=== PATIENT | male | born 1985 | race Caucasian/White ===

== ENCOUNTER 2017-10-09 18:02 | Emergency (ER) | payer BC ==
[~2017-10-09] VITALS: Ht 190.5 cm; Wt 136.4 kg
[2017-10-09 18:15] VITALS: TEMP 97.6
[2017-10-09 18:54] LABS: BASO # 0.1 (0.0-0.2); BASO % 0.5 % (0.0-2.0); EOS # 0.1 (0.0-0.7); EOS % 0.6 % (0-4.0); GRAN # 8.9 (1.4-6.5); HEMATOCRIT 45.1 % (42.0-52.0); HEMOGLOBIN 15.9 g/dl (13.5-18.0); LYMPH # 2.4 (1.2-3.4); LYMPH % 19.6 % (20.0-51.0); MEAN CELL VOLUME 92 fl (80.0-100.0); MEAN CORPUSCULAR HEMOGLOBIN 32 pg (27.0-31.0); MEAN CORPUSCULAR HGB CONC 35 g/dl (33.0-37.0); MEAN PLATELET VOLUME 10.1 fl (7.4-10.4); MONO # 0.7 (0.1-0.6); PLATELET COUNT 293 K/mm3 (130-400); RED BLOOD COUNT 4.91 M/mm3 (4.20-5.60)
[2017-10-09 19:06] LABS: ALANINE AMINOTRANSFERASE 39 U/L (21-72); ALBUMIN 4.7 gm/dL (3.5-5.0); ALKALINE PHOSPHATASE 87 U/L (50-136); ANION GAP 16 mmol/L (7-16); AST,SGOT 23 U/L (15-37); BILIRUBIN,TOTAL 0.7 mg/dL (0.0-1.0); BLOOD UREA NITROGEN 15 mg/dL (9-20); CARBON DIOXIDE 21 mmol/L (22-30); CHLORIDE 101 mmol/L (98-107); CREATININE, serum 1.17 mg/dL (0.66-1.25); GLUCOSE 100 mg/dL (74-106); LIPASE 58 U/L (23-300); POTASSIUM 4.2 mmol/L (3.4-5.0); SODIUM 139 mmol/L (137-145); TOTAL PROTEIN 8.7 gm/dL (6.4-8.2)
[2017-10-09 19:17] LABS: TROPONIN-I < 0.012 ng/mL (0.000-0.034)
[2017-10-09 19:23] LABS: COLLECTION METHOD CLEAN CATCH
[2017-10-09 19:29] LABS: MUCOUS Present /lpf; PH 5 (5-8); SQUAMOUS EPITHELIAL 0-2 /hpf; URINE APPEARANCE Clear; URINE BACTERIA None Seen /hpf; URINE BILIRUBIN Negative (NEGATIVE); URINE BLOOD Negative (NEGATIVE); URINE COLOR Yellow; URINE GLUCOSE Negative (NEGATIVE); URINE KETONE Negative (NEGATIVE); URINE LEUKOCYTE ESTERASE Negative (NEGATIVE); URINE NITRATE Negative (NEGATIVE); URINE PROTEIN(semi-quant) Negative (NEGATIVE); URINE RBC 0-2 /hpf; URINE UROBILINOGEN Negative (NEGATIVE)
[2017-10-09] MEDS ORDERED: PHENERGAN 25 TA25 MG PO (19:37)
[2017-10-09] MEDS ORDERED: NEXIUM 40MG40 MG PO (19:37)
[2017-10-09 20:05] VITALS: BP 158/112; PULSE 87
== END 2017-10-09 20:04 | disposition home or self-care (01) ==
LOC: COL.ER 18:02
PROVIDERS: Emergency Medicine
DX: R10.12 Left upper quadrant pain (principal); F17.210 Nicotine dependence, cigarettes, uncomplicated
CPT/HCPCS: C9113; J2550; J7030

== ENCOUNTER 2017-12-25 16:18 | Inpatient (IN) | payer BC ==
[~2017-12-25] VITALS: Ht 190.5 cm; Wt 131.2 kg
[~2017-12-25 16:18] MED LIST changes: -PRILOSEC 20MG20 MG PO; -TYLENOL 500MG500 MG PO
[2017-12-25] MEDS ORDERED: PRILOSEC 20MG20 MG PO (16:42)
[2017-12-25] MEDS ORDERED: TYLENOL 500MG500 MG PO (16:44)
[2017-12-25 17:01] VITALS: BP 148/81; PULSE 112; TEMP 98.3
[2017-12-25 17:35] LABS: HEMATOCRIT 39.2 % (42.0-52.0); HEMOGLOBIN 13.4 g/dl (13.5-18.0); MEAN CELL VOLUME 96 fl (80.0-100.0); MEAN CORPUSCULAR HEMOGLOBIN 33 pg (27.0-31.0); MEAN CORPUSCULAR HGB CONC 34 g/dl (33.0-37.0); PLATELET COUNT 361 K/mm3 (130-400); RED BLOOD COUNT 4.09 M/mm3 (4.20-5.60); REDCELL DISTRIBUTION WIDTH-CV 13.2 % (11.5-14.5)
[2017-12-25 17:52] LABS: ALBUMIN 3.8 gm/dL (3.5-5.0); BILIRUBIN,TOTAL 1.3 mg/dL (0.0-1.0); CALCIUM 8.6 mg/dL (8.4-10.2); CREATININE, serum 0.94 mg/dL (0.66-1.25); POTASSIUM 3.6 mmol/L (3.4-5.0); TOTAL PROTEIN 7.6 gm/dL (6.4-8.2)
[2017-12-25 17:53] LABS: BAND 12 % (0-10); LYMPHOCYTE 4 % (20.0-51.0); METAMYELOCYTE 1 % (0-0); NEUTROPHILS 76 % (42.0-75.2); PLATELET ESTIMATE NORMAL (NORMAL)
[2017-12-25 19:38] VITALS: BP 149/74; PULSE 108; TEMP 98.5
[2017-12-26 00:19] VITALS: BP 153/77; PULSE 114; TEMP 98.6
[2017-12-26 04:56] VITALS: BP 150/84; PULSE 105; TEMP 98.6
[2017-12-26 05:49] LABS: COLLECTION METHOD CLEAN CATCH
[2017-12-26 06:21] LABS: PH 6 (5-8); SQUAMOUS EPITHELIAL None Seen /hpf; URINE APPEARANCE Turbid; URINE BACTERIA None Seen /hpf; URINE BILIRUBIN Negative (NEGATIVE); URINE BLOOD 3+ (NEGATIVE); URINE COLOR Red; URINE GLUCOSE Negative (NEGATIVE); URINE KETONE Trace (NEGATIVE); URINE LEUKOCYTE ESTERASE Negative (NEGATIVE); URINE NITRATE Negative (NEGATIVE); URINE PROTEIN(semi-quant) 1+ (NEGATIVE); URINE RBC 20-50 /hpf; URINE UROBILINOGEN Negative (NEGATIVE)
[2017-12-26 07:08] LABS: HEMOGLOBIN 11.9 g/dl (13.5-18.0); MEAN CELL VOLUME 98 fl (80.0-100.0); MEAN CORPUSCULAR HEMOGLOBIN 33 pg (27.0-31.0); MEAN CORPUSCULAR HGB CONC 34 g/dl (33.0-37.0); MEAN PLATELET VOLUME 10.1 fl (7.4-10.4); PLATELET COUNT 345 K/mm3 (130-400); RED BLOOD COUNT 3.62 M/mm3 (4.20-5.60); REDCELL DISTRIBUTION WIDTH-CV 13.5 % (11.5-14.5)
[2017-12-26 07:14] LABS: HEMATOCRIT 35.3 % (42.0-52.0)
[2017-12-26 07:17] LABS: ALBUMIN 3.1 gm/dL (3.5-5.0); CALCIUM 7.9 mg/dL (8.4-10.2); CREATININE, serum 0.81 mg/dL (0.66-1.25); POTASSIUM 3.7 mmol/L (3.4-5.0); TOTAL PROTEIN 6.5 gm/dL (6.4-8.2)
[2017-12-26 07:38] VITALS: BP 128/70; PULSE 102; TEMP 98.6
[2017-12-26 10:10] LABS: BAND 22 % (0-10); LYMPHOCYTE 1 % (20.0-51.0); NEUTROPHILS 74 % (42.0-75.2); PLATELET ESTIMATE NORMAL (NORMAL); TOXIC GRANULATION PRESENT
[2017-12-26 12:07] VITALS: BP 143/81; PULSE 98; TEMP 98.7
[2017-12-26 16:21] VITALS: BP 147/77; PULSE 88; TEMP 98.5
[2017-12-26 19:42] VITALS: BP 151/77; PULSE 103; TEMP 99.2
[2017-12-27] VITALS (7 sets, daily range): BP systolic 147–158; BP diastolic 61–85; PULSE 77–106; TEMP 97.9–101.2
[2017-12-27 06:18] LABS: HEMOGLOBIN 11.3 g/dl (13.5-18.0); MEAN CELL VOLUME 98 fl (80.0-100.0); MEAN CORPUSCULAR HEMOGLOBIN 33 pg (27.0-31.0); MEAN CORPUSCULAR HGB CONC 34 g/dl (33.0-37.0); MEAN PLATELET VOLUME 9.7 fl (7.4-10.4); PLATELET COUNT 347 K/mm3 (130-400); RED BLOOD COUNT 3.44 M/mm3 (4.20-5.60); REDCELL DISTRIBUTION WIDTH-CV 13.2 % (11.5-14.5)
[2017-12-27 06:20] LABS: HEMATOCRIT 33.6 % (42.0-52.0)
[2017-12-27 06:44] LABS: ALBUMIN 2.9 gm/dL (3.5-5.0); BILIRUBIN,TOTAL 0.9 mg/dL (0.0-1.0); CREATININE, serum 0.74 mg/dL (0.66-1.25); POTASSIUM 3.6 mmol/L (3.4-5.0); TOTAL PROTEIN 6.3 gm/dL (6.4-8.2)
[2017-12-27 07:20] LABS: BAND 26 % (0-10); LYMPHOCYTE 9 % (20.0-51.0); NEUTROPHILS 60 % (42.0-75.2); PLATELET ESTIMATE NORMAL (NORMAL)
[2017-12-27 09:56] LABS: CHOLESTEROL RISK RATIO 5.7
[2017-12-28] VITALS (9 sets, daily range): BP systolic 148–155; BP diastolic 63–90; PULSE 95–107; TEMP 98–101.2
[2017-12-28 07:40] LABS: HEMOGLOBIN 10.5 g/dl (13.5-18.0); MEAN CELL VOLUME 99 fl (80.0-100.0); MEAN CORPUSCULAR HEMOGLOBIN 33 pg (27.0-31.0); MEAN CORPUSCULAR HGB CONC 33 g/dl (33.0-37.0); MEAN PLATELET VOLUME 10.1 fl (7.4-10.4); PLATELET COUNT 383 K/mm3 (130-400); RED BLOOD COUNT 3.19 M/mm3 (4.20-5.60); REDCELL DISTRIBUTION WIDTH-CV 13.2 % (11.5-14.5)
[2017-12-28 07:48] LABS: HEMATOCRIT 31.6 % (42.0-52.0)
[2017-12-28 07:53] LABS: ALBUMIN 2.7 gm/dL (3.5-5.0); BILIRUBIN,TOTAL 0.7 mg/dL (0.0-1.0); CALCIUM 7.9 mg/dL (8.4-10.2); CREATININE, serum 0.7 mg/dL (0.66-1.25); POTASSIUM 3.4 mmol/L (3.4-5.0)
[2017-12-28 08:10] LABS: BAND 30 % (0-10); EOSINOPHIL 1 % (0-4); LYMPHOCYTE 5 % (20.0-51.0); METAMYELOCYTE 1 % (0-0); NEUTROPHILS 59 % (42.0-75.2)
[2017-12-28 08:11] LABS: PLATELET ESTIMATE NORMAL (NORMAL)
[2017-12-29 03:41] VITALS: BP 146/84; PULSE 102; TEMP 98.7
[2017-12-29 07:05] LABS: HEMATOCRIT 33.4 % (42.0-52.0); HEMOGLOBIN 11.2 g/dl (13.5-18.0); MEAN CELL VOLUME 98 fl (80.0-100.0); MEAN CORPUSCULAR HEMOGLOBIN 33 pg (27.0-31.0); MEAN CORPUSCULAR HGB CONC 34 g/dl (33.0-37.0); MEAN PLATELET VOLUME 9.6 fl (7.4-10.4); PLATELET COUNT 418 K/mm3 (130-400); RED BLOOD COUNT 3.41 M/mm3 (4.20-5.60)
[2017-12-29 07:18] LABS: ALBUMIN 2.8 gm/dL (3.5-5.0); BILIRUBIN,TOTAL 2.8 mg/dL (0.0-1.0); CALCIUM 8.1 mg/dL (8.4-10.2); CREATININE, serum 0.65 mg/dL (0.66-1.25); POTASSIUM 3.9 mmol/L (3.4-5.0); TOTAL PROTEIN 6.1 gm/dL (6.4-8.2)
[2017-12-29 07:21] LABS: BAND 27 % (0-10); LYMPHOCYTE 9 % (20.0-51.0); METAMYELOCYTE 1 % (0-0); NEUTROPHILS 57 % (42.0-75.2); PLATELET ESTIMATE INCREASED (NORMAL)
[2017-12-29 07:38] VITALS: BP 153/89; PULSE 105; TEMP 98.6
[2017-12-29 11:47] VITALS: BP 141/86; PULSE 103; TEMP 98.6
[2017-12-29 16:16] VITALS: BP 144/76; PULSE 103; TEMP 99.4
[2017-12-29 20:00] VITALS: BP 130/72; PULSE 114; TEMP 98.7
[2017-12-30] VITALS (8 sets, daily range): BP systolic 141–159; BP diastolic 60–98; PULSE 96–121; TEMP 97.4–99.3
[2017-12-30 07:27] LABS: BASO % 0.2 % (0.0-2.0); EOS # 0.1 (0.0-0.7); EOS % 0.5 % (0-4.0); GRAN # 10.1 (1.4-6.5); GRAN % 78.9 % (42.2-75.2); HEMOGLOBIN 10.5 g/dl (13.5-18.0); LYMPH # 1.2 (1.2-3.4); LYMPH % 9.6 % (20.0-51.0); MEAN CELL VOLUME 98 fl (80.0-100.0); MEAN CORPUSCULAR HEMOGLOBIN 32 pg (27.0-31.0); MEAN CORPUSCULAR HGB CONC 33 g/dl (33.0-37.0); MEAN PLATELET VOLUME 9.6 fl (7.4-10.4); MONO # 1.2 (0.1-0.6); MONO % 9.4 % (1.7-9.3); PLATELET COUNT 425 K/mm3 (130-400); RED BLOOD COUNT 3.24 M/mm3 (4.20-5.60)
[2017-12-30 07:28] LABS: HEMATOCRIT 31.8 % (42.0-52.0)
[2017-12-30 07:37] LABS: ALBUMIN 2.7 gm/dL (3.5-5.0); BILIRUBIN,TOTAL 1.1 mg/dL (0.0-1.0); CALCIUM 8.1 mg/dL (8.4-10.2); CREATININE, serum 0.63 mg/dL (0.66-1.25); POTASSIUM 3.5 mmol/L (3.4-5.0)
[2017-12-31 03:10] VITALS: BP 154/90; PULSE 97; TEMP 98.2
[2017-12-31 06:10] LABS: BASO % 0.3 % (0.0-2.0); EOS # 0.1 (0.0-0.7); EOS % 0.8 % (0-4.0); GRAN # 9.2 (1.4-6.5); GRAN % 78.3 % (42.2-75.2); HEMOGLOBIN 10.5 g/dl (13.5-18.0); LYMPH # 1.1 (1.2-3.4); LYMPH % 9.7 % (20.0-51.0); MEAN CELL VOLUME 98 fl (80.0-100.0); MEAN CORPUSCULAR HEMOGLOBIN 33 pg (27.0-31.0); MEAN CORPUSCULAR HGB CONC 33 g/dl (33.0-37.0); MEAN PLATELET VOLUME 10.2 fl (7.4-10.4); MONO # 1.1 (0.1-0.6); MONO % 9.6 % (1.7-9.3); PLATELET COUNT 445 K/mm3 (130-400); RED BLOOD COUNT 3.21 M/mm3 (4.20-5.60); REDCELL DISTRIBUTION WIDTH-CV 12.9 % (11.5-14.5)
[2017-12-31 06:12] LABS: HEMATOCRIT 31.5 % (42.0-52.0)
[2017-12-31 06:16] LABS: ALBUMIN 2.8 gm/dL (3.5-5.0); BILIRUBIN,TOTAL 1.3 mg/dL (0.0-1.0); CALCIUM 8.2 mg/dL (8.4-10.2); CREATININE, serum 0.58 mg/dL (0.66-1.25); POTASSIUM 3.5 mmol/L (3.4-5.0); TOTAL PROTEIN 6.1 gm/dL (6.4-8.2)
[2017-12-31 08:08] VITALS: BP 152/69; PULSE 95; TEMP 98.5
[2017-12-31] MEDS ORDERED: TOPROL XL 25MG25 MG PO (09:27)
[2017-12-31] MEDS ORDERED: ROXICODONE 55 MG/TAB PO (09:35)
== END 2017-12-31 10:39 | disposition home or self-care (01) | DRG 439 ==
LOC: MEDICAL 16:18
PROVIDERS: Hospitalist; Physician Assistant
DX: K85.90 Acute pancreatitis without necrosis or infection, unspecified (principal); E87.1 Hypo-osmolality and hyponatremia; K81.0 Acute cholecystitis; K86.3 Pseudocyst of pancreas; F17.210 Nicotine dependence, cigarettes, uncomplicated; I10 Essential (primary) hypertension
CPT/HCPCS: 99222-AI; 99232-AI; 99233-AI; 99239; A4216; A9284; A9537; C9113; J1170; J1650; J2185; J7030; Q9967

== ENCOUNTER → 2017-12-25 | Outpatient (CLI) | payer BC ==
[~2017-12-25] MED LIST: NEXIUM 40MG40 MG PO; PHENERGAN 25 TA25 MG PO; PRILOSEC 20MG20 MG PO; TYLENOL 500MG500 MG PO
== END ==
LOC: COL.RAD 11:34
DX: K85.90 Acute pancreatitis without necrosis or infection, unspecified (principal)
CPT/HCPCS: Q9967

== ENCOUNTER → 2018-01-27 | Outpatient (CLI) | payer BC ==
[~2018-01-27] MED LIST changes: +PRILOSEC 20MG20 MG PO; +ROXICODONE 55 MG/TAB PO; +TOPROL XL 25MG25 MG PO; +TYLENOL 500MG500 MG PO
== END ==
LOC: COL.RAD 01-20 08:30
DX: K86.3 Pseudocyst of pancreas (principal); J90 Pleural effusion, not elsewhere classified; K82.8 Other specified diseases of gallbladder
CPT/HCPCS: Q9967